=== PATIENT | male | born 1930 | race Caucasian/White ===

== ENCOUNTER 2016-08-29 14:06 | Inpatient (IN) | payer MEDICARE, BC ==
[~2016-08-29] VITALS: Ht 172.7 cm; Wt 87.2 kg
--- NOTE | ~2016-08-29 | ECH ---
Transthoracic Echocardiography Report (TTE) Demographics Patient Name DIONY ANNE Date of Study 08/30/2016 Patient Number [id number] Visit Number [id number] Date of 1930 Room Number 520 Accession Number [id number] Gender Male Age 86 year(s) Referring Christian Gaona Plater Supervisor Mary Schultz Physician SUJATA Physician Andrzej Perez MD Telemarketing Representative Physician Scotty Supervising Ordering Physician Christian Gaona MD/MLP Nurse Stress Cotton Presser Conclusions Contractility Score Summary Normal Left Ventricular contractility was noted. Summary Technically adequate exam. The estimated left ventricular ejection fraction is 60%. Mild biatrial enlargement. There is trivial aortic regurgitation by color Doppler. Recommendation The patient will be given the results of this study by the physician who ordered the exam. Procedure Type of Study TTE procedure:Echo Complete SF. Procedure Date Date: 08/30/2016 Start: 03:04 PM Technical Quality: Adequate visualization Indications:Atrial fibrillation, Bradycardia and Diabetes. Appropriate Use Criteria: 9 Height: 68 inches Weight: 152 pounds BSA: 1.82 m Rhythm: Atrial fibrillation HR: 68 bpm BP: 141/82 mmHg M-Mode/2D Measurements LV Diastolic Dimension: 5.09 cm LV Systolic Dimension: 3.58 cm LV Septum Diastolic: 0.88 cm LV PW Diastolic: 0.83 cm AO Root Dimension: 3.13 cm Cardiac Output: 4.79 l/min LA Dimension: 4.33 cm Cardiac Index: 2.63 l/min*m RV Diastolic Dimension: 3.63 cm LA volume index: 41 ml/m LVOT: 2.24 cm LVOT VTI: 17.89 cm RV Base: 3.5 cm LV Stroke volume: 70.47 ml RV Mid: 2.4 cm LV Stroke volume index: 38.72 ml/m TAPSE: 2.3 cm TDI-S': 11 cm/s Doppler Measurements AV Peak Velocity: 1.4 m/s MV Peak E-Wave: 0.92 m/s AV Peak Gradient: 7.84 mmHg AV Mean Gradient: 4.07 mmHg MV P1/2t: 76 msec LVOT Peak Velocity: 0.9 m/s AV Area (Continuity):2.89 cm AV P1/2t: 450.6 msec MV Area (PHT): 2.89 cm TR Velocity:2.37 m/s PV Peak Velocity: 0.72 m/s TR Gradient:22.47 mmHg PV Peak Gradient: 2.04 mmHg Estimated RAP:3 mmHg Estimated PASP: 25.47 mmHg Estimated RVSP: 25 mmHg E' Septal Velocity: 0.09 m/s E' Lateral Velocity: 0.12 m/s RA Area: 18.32 cm Findings Left Ventricle Normal left ventricle size and function. Diastolic function indeterminate due to patient's arrhythmia. Right Ventricle Normal right ventricle structure and function. Left Atrium The left atrium is mildly dilated by LA volume index measurement. Right Atrium The right atrium is mildly dilated. Mitral Valve Mild mitral annular calcification. Trivial mitral regurgitation by color Doppler. Aortic Valve The aortic valve is mildly sclerotic. There is trivial aortic regurgitation by color Doppler. Tricuspid Valve Normal tricuspid valve structure and function. Mild tricuspid regurgitation by color Doppler. Normal pulmonary pressures. Pulmonic Valve The pulmonic valve is not well visualized. Pericardial Effusion No evidence of pericardial effusion. Miscellaneous Visualized portions of the aortic root and ascending aorta appear normal in size. Pleural Effusion No evidence of pleural effusion. Contractility Score LV regional wall motion:(0-Non visualized 1-Normal 2-Hypokinesis 3-Akinesis 4-Dyskinesis 5-Aneurysm) Signature
[~2016-08-29 14:06] MED LIST: ASA CHILDREN'S81 MG PO; DUONEB DPS3 ML IH; ELIQUIS2.5 MG PO; GLUCOTROL5 MG PO; LEXAPRO DPS10 MG PO; MICRO-K DPS10 MEQ PO; NORCO 5-325 TA1 EACH PO; PRESERVISION A1 EAC2 PO; PRILOSEC DPS20 MG PO; RESTASIS1 EACH OU; SENOKOT S1 TAB PO; SEROQUEL25 MG PO; SYNTHROID DPS0.15 MG PO; TEARS NATURAL D15 ML OU; TERAZOSIN10 MG PO; TYLENOL DPS325 MG PO
--- NOTE | 2016-08-31 17:03 | CO ---
ADMIT: 08/29/2016 RM/LOC: 520 [facility] MR#: [id number] 2620 [facility] [address] [place], [place] [address] REJI ANNE [address] [place] [address] Consultation SEX: M AGE: 86 : 1930 DATE OF CONSULTATION: 08/31/2016 ATTENDING PHYSICIAN: Jimenez Gonzales CONSULTING PHYSICIAN: Scotty Perez MD REASON FOR CONSULTATION: Atrial fibrillation, and slow ventricular response intermittently. HISTORY OF PRESENT ILLNESS: Reji is a pleasant 86-year-old male, who I was asked to see in consultation by Dr. Gonzales regarding atrial fibrillation and intermittent slow ventricular response while sleeping. Reji has a long history of atrial fibrillation, but family and he is not sure for how long he has been on anticoagulation. He just recently moved to [facility], and had not even been there two weeks when he was brought in for weakness and confusion. He does have a history of orthostasis. He says, he was having difficulty time walking and moving his arms and legs. He declined to the point that he could not get out of bed. He was diagnosed with urinary tract infection, and was admitted to the hospital for further evaluation. There was concern about underlying Parkinson's disease and he also has some orthostasis overnight. He has permanent atrial fibrillation but had some heart rates down to about 40 beats per minute. He did wear a Holter monitor a year ago that was unremarkable with atrial fibrillation with an average heart rate in the 70s. PAST MEDICAL HISTORY: Includes: 1. Permanent atrial fibrillation. 2. BPH. 3. Dementia. 4. Diabetes. 5. Edema. 6. Reflux. 7. History of orthostatic hypotension. 8. History of hypothyroidism. 9. History of depression. 10.Nephrolithiasis. 11.Obesity. 12.Sleep-related hypoxia. 13.Osteoarthritis. 14.Polyps. 15.Venous insufficiency. MEDICATIONS: Home medications include: 1. Aspirin daily. 2. Cranberry daily. 3. Calcium D daily. 4. Eliquis 5 mg b.i.d. 5. Escitalopram 10 mg at bedtime. 6. Furosemide 40 mg daily. ADMIT: 08/29/2016 RM/LOC: 520 [facility] MR#: [id number] [address] [address] [address] Consultation SEX: M AGE: 86 : 1930 7. Levothyroxine 150 mcg daily. 8. Melatonin 3 mg at bedtime. 9. Midodrine 2.5 mg b.i.d. 10.Omeprazole 20 mg b.i.d. 11.Multivitamin daily. 12.Potassium 10 mEq daily. 13.PreserVision daily. 14.Refresh eye drops daily. 15.Restasis drops b.i.d. 16.Senexon two capsules b.i.d. 17.Surfak 240 mg daily. 18.Benazepril 5 mg at bedtime. 19.Mirtazapine 15 mg at bedtime. ALLERGIES: SEROQUEL CAUSE CONFUSION. FAMILY HISTORY: Denies any family history of early coronary artery disease. SOCIAL HISTORY: Patient is . He recently moved to [facility]. Denies any alcohol, drug, or tobacco use. REVIEW OF SYSTEMS: Unable to obtain accurate review of systems. He could not really provide any history at this point. Some of it is obtained from his daughters, but a review of systems could not be accurately obtained. PHYSICAL EXAMINATION: VITAL SIGNS: Blood pressure 125/70, pulse 66, respirations 16, oxygen 96% on room air. GENERAL: He is alert. He is oriented to self and place. He is in no acute distress. He is lying in bed. HEENT: Normocephalic and atraumatic. Moist mucous membranes. NECK: Supple. No lymphadenopathy. JVP appears normal. HEART: Irregularly irregular. LUNGS: Clear to auscultation bilaterally. ABDOMEN: Soft, nontender. EXTREMITIES: He has trace edema bilaterally. NEUROLOGIC: He is able to move all extremities, but appears very weak. SKIN: No rashes. PSYCHIATRIC: He is confused. He cannot answer most questions. DIAGNOSTIC DATA: Reviewed. EKG shows atrial fibrillation with heart rate of 61 beats per minute. TSH is pending. Creatinine is 1.1. Potassium 3.7, sodium 147. CBC; hemoglobin 12.6, hematocrit 37.6, platelets 151, white blood cell count 7.9. IMPRESSION AND PLAN: ADMIT: 08/29/2016 RM/LOC: 520 [facility] MR#: [id number] [address] [place], [place] [id number] [place] [address] Consultation SEX: M AGE: 86 : 1930 1. Permanent atrial fibrillation. The patient did have some mild bradycardia while sleeping overnight around 40 beats per minute, but no significant pauses. This appeared to be mostly while he is sleeping. He does have a history of nocturnal hypoxemia which could be contributing to some nighttime bradycardia, this is not appear to be a major contributor to his current symptomatology. We would watch him on telemetry while he is here. We will check an echocardiogram, check his thyroid studies. Depending upon his tele results while here, we will decide upon a Holter monitor. 2. Urinary tract infection being treated. 3. Dementia encephalopathy. We will follow along and amend our plan as his care progresses. Scotty Perez MD/ [facility] JOB #: [id number] CC: Jimenez Gonzales, Attending Physician Jimenez Gonzales, Family Physician
--- NOTE | 2016-09-02 19:48 | HP ---
ADMIT: 08/29/2016 RM/LOC: 520 [facility] MR#: [id number] 2620 [facility] [address] [place], [place] [address] REJI ANNE [address] [place] [address] History and Physical SEX: M AGE: 86 : 1930 DATE OF SERVICE: CHIEF COMPLAINT: Weakness and confusion. HISTORY OF PRESENT ILLNESS: Reji is a very pleasant 86-year-old male, who recently moved to assisted living at [facility], who was brought in by squad to the Emergency Department for the above complaints. The patient has done actually quite well until the last month. He has lived with his daughter, Charline, at her home. However, over the last month, he has been having rapidly progressive increasing weakness. He has been seen in the clinic multiple times, felt that some of his symptoms were due to orthostasis likely from his terazosin. He was taking two capsules at night. It was noted that he was orthostatic in clinic and blood pressures on the lower end. He has since popped this medicine and this has helped some, but he has continued to feel weak. He states that he has times where he feels like he is frozen and cannot move. As he was becoming more difficult to take care of, he and his daughter agreed for him to live at [facility]. Over the course of the last week, he is severely declined to the point where he cannot even get out of bed. He was evaluated with a urinalysis which showed some abnormalities, not obvious infected, and cultures are currently pending. It was thought that he might have a urinary tract infection and he was actually started on cefdinir. Again, prior to all this, the patient was doing quite well. He used to walk across the street, play cards on a regular basis, and now he has rapidly progressed to a point where he cannot even get up out of the chair. No fevers or chills. No other significant symptoms voiced or complaints voiced at this time. PAST MEDICAL HISTORY: Includes: 1. Atrial fibrillation. 2. Benign prostatic hypertrophy. 3. Mild dementia. 4. Diabetes mellitus. 5. Edema. 6. Esophageal reflux. 7. Hypotension, orthostatic. 8. Hypothyroidism. 9. Major depression, mild. 10.Nephrolithiasis, history of. 11.Obesity. 12.Organic sleep-related hypoxia. 13.Osteoarthritis. 14.Personal history of colon polyps. 15.Venous insufficiency. MEDICATIONS: Please refer to the hospital record. The patient recently was just started on Aricept in the last 48 hours as well as mirtazapine, and I believe he got his first dose last night due to depression and having a flat affect. ADMIT: 08/29/2016 RM/LOC: 520 [facility] MR#: [id number] [address] [place] [id number] [place] [address] History and Physical SEX: M AGE: 86 : 1930 ALLERGIES: SEROQUEL CAUSED INCREASED CONFUSION. DURING HIS LAST HOSPITALIZATION FOR HIS KNEE REPLACEMENT, HE DID HAVE ACUTE ENCEPHALOPATHY/DELIRIUM WITH THIS. FAMILY HISTORY: Noncontributory. SOCIAL HISTORY: The patient recently moved to [facility] as above. No alcohol, drug, or tobacco use. REVIEW OF SYSTEMS: A 10-point review of systems obtained, per HPI, otherwise negative. PHYSICAL EXAMINATION: VITAL SIGNS: Blood pressure, heart rate within normal limits, afebrile. GENERAL: He is alert. Oriented x2 to self and place. In no acute distress. The patient is lying in his bed. Very flat affect. HEENT: Pupils equal, round, and reactive. Extraocular muscles intact. Throat clear. Trachea midline. HEART: Irregular. LUNGS: Clear. ABDOMEN: Soft, nontender. EXTREMITIES: Legs, trace edema. NEUROLOGICAL: Some generalized weakness but no focal neurologic findings. SKIN: Without any significant rashes. LABORATORY DATA: CBC essentially normal. Potassium slightly low at 3.3. AST and ALT slightly elevated, 53 and 80. ASSESSMENT: This is an 86-year-old with: 1. Acute encephalopathy, unclear etiology. 2. Rapidly progressive weakness. 3. Urinary tract infection. 4. Underlying dementia. 5. History of orthostasis, recently taken off terazosin. 6. Question of Parkinson disease. 7. Generalized debility of age. 8. Atrial fibrillation, chronic anticoagulation. 9. Gastroesophageal reflux disease. 10.Benign prostatic hypertrophy. 11.Orthostasis. PLAN: We will admit patient OPO. Encephalopathy possibly secondary to infection. I did talk with Nikolai and he is not appropriate given his current care needs for assisted living. No arrangements have been made for ADMIT: 08/29/2016 RM/LOC: 520 [facility] MR#: [id number] [address] [place] [id number] [place] [address] History and Physical SEX: M AGE: 86 : 1930 long-term [facility]. However, this is not the patient's baseline. Prior to this, he was doing quite well at home living with his daughter and just really has rapidly progressed over the last month and then more severely over the last week. I do have concern that there may be some underlying neurologic disorder, possible Parkinson's versus neuromuscular disorder. We will ask Neurology to see patient. We will treat with antibiotics. Physical therapy and have speech therapy. Rule out any stroke with CT scan. Continue to monitor closely. I do think patient does have some underlying mild dementia and thus this is definitely unmasked during his last hospitalization with his knee replacement, but since then, he has been doing quite well and his many mini-mental status exams in the clinic have been quite good. Appreciate Neurology's evaluation in advance. Jimenez Gonzales MD/ [facility] JOB #: [id number] CC: Jimenez Gonzales, Attending Physician Jimenez Gonzales, Family Physician
--- NOTE | 2016-09-03 23:43 | ER ---
ADMIT: 08/29/2016 RM/LOC: 520 [facility] MR#: [id number] [address] [facility] [address] [place], [place] [address] [facility] [address] [address] Emergency Room Report SEX: M AGE: 86 : 1930 DATE: 08/29/2016 HISTORY OF PRESENT ILLNESS: He lives at [facility], brought in today with confusion and weakness that continues in the emergency room. He was diagnosed yesterday by Dr. Gonzales as having a urinary tract infection after he had a urinalysis done. He was started on cefdinir yesterday, but he reports getting his one dose today. He also reports getting a new antidepressant which was started this week. The patient seems to be a little confused. REVIEW OF SYSTEMS: Otherwise negative. PAST MEDICAL HISTORY: He has had gastritis, atrial fibrillation, hypotension which is chronic, and macular degeneration.. MEDICATIONS: See T-sheet, which are quite extensive and include: 1. Aspirin. 2. Calcium. 3. Eliquis. 4. Citalopram. 5. Furosemide. 6. Levothyroxine. 7. Melatonin. 8. Midodrine. 9. Omeprazole. 10.Potassium chloride. 11.Senexon. 12.Terazosin. 13.Xarelto. 14.Donepezil. 15.Mirtazapine. 16.Cefdinir. ALLERGIES: NO KNOWN DRUG ALLERGIES EXCEPT FLEXERIL MAKES HIM A LITTLE CONFUSED. SOCIAL HISTORY: Denies drinking drugs or alcohol. PHYSICAL EXAMINATION: VITAL SIGNS: Blood pressure 97/66, heart rate 76, respirations 16, temp is 97.6, O2 sats 96%. GENERAL: Mildly anxious. NEUROLOGIC: Alert, flat affect, depressed. NECK: Supple. HEENT: PERRLA. RESPIRATIONS: No distress. CVS: Regular in rate and rhythm. ABDOMEN: Nontender. SKIN: Good color and turgor. Warm and dry. EXTREMITIES: Mild edema bilaterally. ADMIT: 08/29/2016 RM/LOC: 520 [facility] MR#: [id number] [address] [address] [place] [address] Emergency Room Report SEX: M AGE: 86 : 1930 LABORATORY DATA: We added to the UA that was done yesterday which had blood 1+, ketones 2+, leukocytes 1+ with a culture and sensitivity to follow. Today, the white count 7.4, hemoglobin 13.2, hematocrit is 38.7. Chemistry; potassium is 3.3 with a glucose of 155, calcium is 84, AST 53, ALT 80, GFR 15. EMERGENCY DEPARTMENT COURSE: Daughter showed up and requested that he get admitted to the hospital to sort out his medications as he has weakness that [facility] is not able to deal with or help with his care. Daughter is not taking him back home. So, I contacted Dr. Jimenez Gonzales. Orders were given. He will be admitted to 4th floor telemetry. He does not meet the criteria for sepsis per nurse evaluation, Clark Gaviria, but Dr. Gonzales asked us to add a procalcitonin and a lactic acid. At this point, he is afebrile. He is hypotensive because this is a chronic issue with him. His white count is 7.4. He is not tachycardic. He is not dyspneic. CLINICAL IMPRESSION: Urinary tract infection and weakness. Admission orders will follow after Dr. Gonzales contacts the floor for orders. GINNY Salazar / Anthony Pretty MD / [facility] JOB #: [id number] CC: Jimenez Gonzales MD, Attending Physician Jimenez Gonzales MD, Family Physician
--- NOTE | 2016-09-05 14:18 | CO ---
ADMIT: 08/29/2016 RM/LOC: 520 [facility] MR#: [id number] [address] [facility] [address] [place], [place] [address] DIONY ANNE [address] [place] [address] Consultation SEX: M AGE: 86 : 1930 DATE OF CONSULTATION: 08/30/2016 ATTENDING PHYSICIAN: Jimenez Gonzales CONSULTING PHYSICIAN: Bev Morales APRN TIME-IN: 1045 hours. TIME-OUT: 1115 hours. REASON FOR CONSULTATION: Supportive care consultation was requested by Dr. Gonzales for discussion of goals for care and patient support. HISTORY OF PRESENT ILLNESS: Mr. Anne is a delightful 86-year-old male with a relatively uncomplicated past medical history including atrial fibrillation and macular degeneration. He recently moved to assisted living at [facility] due to increasing need for assistance with ADLs and also a little bit of mild confusion. Just prior to admission, he was seen by Dr. Gonzales and treated for urinary tract infection. Due to ongoing confusion and weakness, he presented to the emergency room on August 29. His daughter requested admission for evaluation of his medications and overall decline. CT of the head was done, which was negative. Ultrasound of the abdomen did reveal cholelithiasis. Apparently, he has had some episodes of "freezing up." Therefore, neurology is consulted to see the patient, however, is unavailable until September 02. There is concern as to whether or not he is demonstrating some parkinsonian-type symptoms. Speech Therapy is following him for swallow issues, and he did pass his MBS today with a modified diet. Due to his complexities, supportive care consultation was requested to discuss goals for care. In terms of symptoms, the patient's affect is fairly flat. He does seem a little depressed and acknowledges that he is anxious at times regarding his overall status and decline. He denies pain or other physical complaints at this time. In terms of advanced directives, the patient is a do not resuscitate/do not intubate status. He does have advanced directive paperwork on file including a living will and also a durable [id number] for healthcare in which he appoints Charline Reynolds, who is his daughter and his phone #[phone] as his healthcare [id number]. Additionally, Jhonathan Anne and Katie Lugo are listed as his successor attorney recruiter in fact for healthcare. PAST MEDICAL HISTORY: Atrial fibrillation, gastritis, hypotension, anxiety, depression, and macular degeneration. ALLERGIES: HE HAS NO KNOWN MEDICATION ALLERGIES. CURRENT MEDICATIONS: Please see the patient's MAR for specific routes and dosages. His current medications are as follows: ADMIT: 08/29/2016 RM/LOC: 520 [facility] MR#: [id number] [address] [place] [address] [address] Consultation SEX: M AGE: 86 : 1930 1. Multivitamin. 2. Aricept. 3. Melatonin. 4. Rocephin. 5. ProAmatine. 6. Surfak. 7. Senokot. 8. Restasis. 9. Natural Tears. 10.Potassium chloride. 11.Protonix. 12.Synthroid. 13.Caltrate with D. 14.Aspirin. 15.Lasix. 16.Lexapro. 17.Zyprexa. 18.Maalox. 19.Tylenol. 20.Colace. 21.Nitrostat. 22.Eliquis. SOCIAL HISTORY: The patient is . He most recently has been living at [facility]. He does not use alcohol or tobacco. He is a retired vigil. FAMILY HISTORY: Reviewed and noncontributory. FUNCTIONAL REVIEW: Prior to his hospital stay, he states that he was able to ambulate at [facility]. He was needing occasional assistance with ADLs. There was some mild confusion. His palliative performance scale prior to admission was at 60%. Currently, he mainly sits or lies. He is requiring assistance with ADLs and transfers. He is mildly confused at times during the course of our conversation. His current palliative performance scale status is at 50%. REVIEW OF SYSTEMS: A 10-point review of systems was completed and other than those pertinent positives and negatives mentioned in the HPI is negative. PHYSICAL EXAMINATION: GENERAL: The patient is examined in the chair. He is in no acute distress. VITAL SIGNS: Temperature 97.0, pulse 63, respirations 18, blood pressure 141/82, oxygen 95% on room air. HEENT. Head is normocephalic. Pupils are 3 mm and brisk. Oral mucosa pink and moist with fair dentition. NECK: Supple. RESPIRATORY: Respirations are equal, nonlabored at rest. LUNGS: Diminished in the bases. ADMIT: 08/29/2016 RM/LOC: 520 [facility] MR#: [id number] [address] [address] [place] [address] Consultation SEX: M AGE: 86 : 1930 CARDIOVASCULAR: Rate rhythm regular without murmurs, rubs, or gallops. 1+ bilateral lower extremity edema noted. GASTROINTESTINAL: Soft, nontender. Bowel sounds are positive. MUSCULOSKELETAL: Generalized weakness. No obvious joint deformities. INTEGUMENTARY: Skin turgor is fair. His skin is fragile. NEUROLOGIC: Alert and oriented x3. He will intermittently become a little confused regarding details such as the year his . PSYCHIATRIC: Calm with a fairly flat affect. He does acknowledge feeling anxious at times and seems to be a little depressed regarding his overall condition. IMPRESSION: 1. Debility. 2. Fatigue. 3. Malaise. 4. Mild protein-calorie malnutrition. 5. Mild confusion. 6. Depression. 7. Anxiety. 8. Urinary tract infection. 9. Atrial fibrillation. 10.Palliative care. 11.The patient is a DNR/DNI. PLAN: 1. I was able to meet with the patient at the bedside. I introduced myself and what my role is in the time ahead. At this time, he is still in the process of being evaluated and Neurology consult is pending. We briefly reviewed his status and overall goals for the time ahead. He is concerned about his decline and has anxiety regarding what could be going on with him. Much support was given to him. At this point, we will ADMIT: 08/29/2016 RM/LOC: 520 [facility] MR#: [id number] [address] [place] [address] [address] Consultation SEX: M AGE: 86 : 1930 follow up over the holiday weekend once complete evaluation is done to discuss goals further with the patient. His daughter was not present at the bedside during my discussion. However, she does come to the hospital stay. I will try to get back up and introduce myself to her as well. 2. I did review code status with the patient. He confirms do not resuscitate/do not intubate status. 3. He has advanced directives on file and these are verified with the patient. We would like to thank Dr. Gonzales for the invitation to participate in this patient's care. Total consultation time was 30 minutes from 1045 hours to 1115 hours with 17 minutes from [id number] spent [id number] with the patient discussing goals for care and providing counseling and support. Bev Morales APRN/ [facility] JOB #: [id number] CC: Jimenez Gonzales, Attending Physician Jimenez Gonzales, Family Physician
--- NOTE | 2016-09-12 15:58 | CO ---
ADMIT: 08/29/2016 RM/LOC: 520 [facility] MR#: [id number] 2620 [facility] [address] [place] [id number] [place], [id number] [place] [address] Consultation SEX: M AGE: 86 : 1930 DATE OF CONSULTATION: 09/03/2016 ATTENDING PHYSICIAN: Jimenez Gonzales CONSULTING PHYSICIAN: Refugio Jackson MD REASON FOR CONSULTATION: Falls and weakness. HISTORY OF PRESENT ILLNESS: The patient is a pleasant 86-year-old gentleman who was admitted to [facility] for fairly rapid decline in his functioning. He has difficulty with walking and reportedly was evaluated for Parkinson's in the past for which the result was inconclusive. The patient currently lives in assisted living [facility] but worsened to the point that he had to be admitted. The difficulties with gait are for about a year long, but in the last few weeks, he rapidly declined. He has hard times standing up from chair, reportedly shuffles and stops in a door frame. There appears to be also worsening with memory. Mood seems to be intact, short-term seems to be impaired. However, he is able to remember events with cues as per his family. PAST MEDICAL HISTORY: Significant for atrial fibrillation, BPH, some cognitive decline, diabetes, GERD, hypotension orthostatic, hypothyroidism, depression, nephrolithiasis, HARRIETT, obesity, OA, colon polyps, and venous insufficiency. MEDICATIONS: Reviewed in electronic medical record. Outpatient medications include: 1. Aspirin. 2. Calcium. 3. Cranberry. 4. Eliquis 5 mg twice daily. 5. Lexapro 10 mg. 6. Furosemide. 7. Levothyroxine. 8. Melatonin. 9. Midodrine 2.5 twice daily. 10.Omeprazole. 11.Multivitamins. 12.Potassium. 13.PreserVision. 14.Refresh tears. 15.Restasis. 16.Senexon. 17.Surfak. 18.Donepezil. 19.Mirtazapine. 20.Cefdinir. ALLERGIES: SEROQUEL. ADMIT: 08/29/2016 RM/LOC: 520 [facility] MR#: [id number] [address] [address] [place] [address] Consultation SEX: M AGE: 86 : 1930 FAMILY HISTORY: Noncontributory to current presentation. No Parkinson disease in the family reported. SOCIAL HISTORY: No alcohol or smoking. REVIEW OF SYSTEMS: All systems reviewed, negative except as per HPI. Positive pertinent findings are neurological difficulties with gait, falls, memory issues. CARDIOVASCULAR: Orthostatic hypotension. PHYSICAL EXAMINATION: VITAL SIGNS: Temperature 98.2, heart rate 59, respirations 16, blood pressure 145/61, saturation 94% on room air. The patient appears to be in no acute discomfort. HEAD: Normocephalic. NECK: Moveable. CHEST: Normal respiratory rises. CARDIOVASCULAR: Bradycardic. ABDOMEN: Nondistended. EXTREMITIES: No clubbing or cyanosis. NEUROLOGICAL EXAM: The patient is awake, alert. His speech is monotone, language is intact. Deferred testing of fund of knowledge. Orientation, he appears to be fairly oriented to situation. Cranial nerves, visual patterson are intact. Pupils are equal and reactive. Extraocular muscles intact. Facial sensation is normal. Face is symmetric. Hearing to voice mildly reduced. Uvula did visualize. Shoulder shrug normal. Tongue moveable. Motor examination reveals full strength throughout, but he is bradykinetic. He has rigidity, which is worse on the left side. Fine motor movements are with reducing frequency and amplitude worse on the left side as demonstrated by opening, closing the fist, finger tapping, and foot tapping. Sensory, nonlateralizing to touch. Reflexes deferred. Coordination fairly intact. Gait, he was able to stand up from chair with 3 or 4 swings. Initial steps were shuffling, stooped posture, reduced arm swing. Turning, he uses multiple steps. LABORATORY DATA: Reviewed in electronic medical record, fairly unremarkable. IMAGING: CT of the head reveals generalized atrophy and pronounced white matter changes. There is a question of hypodensity in the right frontal lobe that extends to the cortex, age unknown. ASSESSMENT: 1. Parkinson disease. 2. Cognitive decline, likely related to Parkinson's disease. 3. deconditioning likely due to recent infection. Received antibiotics for UTI. 4. Orthostatic hypotension. ADMIT: 08/29/2016 RM/LOC: 520 [facility] MR#: [id number] [address] [place] [id number] [place] [address] Consultation SEX: M AGE: 86 : 1930 PLAN: 1. We will start Sinemet 25/100 mg t.i.d. a.c. (to prevent poor absorption with protein containing meals). If nauseated can give juice and crackers. 2. He will continue with physical therapy. 3. CT of the head showed hypodensity. Therefore, we will obtain the MRI. 4. We will see how he does with the Sinemet. Potentially, we will need to adjust his midodrine. It is better used as t.i.d. Last dose should be from bedtime at least for 4 hours to prevent supine hypertension. Thank you very much for this interesting consultation. We will continue to follow along. Refugio Jackson MD/ [facility] JOB #: [id number] CC: Jimenez Gonzales, Attending Physician Jimenez Gonzales, Family Physician
[2016-09-19] MEDS ORDERED: THERA1 EACH PO (18:33)
[2016-09-19] MEDS ORDERED: ARICEPT DPS5 MG PO (18:34)
[2016-09-19] MEDS ORDERED: PRESERVISION A1 EAC1 PO (18:34)
[2016-09-19] MEDS ORDERED: LEXAPRO DPS10 MG PO (18:34)
[2016-09-19] MEDS ORDERED: ASA CHILDREN'S81 MG PO (18:34)
[2016-09-19] MEDS ORDERED: RESTASIS1 EACH OU (18:35)
[2016-09-19] MEDS ORDERED: XARELTO10 MG PO (18:35)
[2016-09-19] MEDS ORDERED: TEARS NATURAL D15 ML OU (18:35)
[2016-09-19] MEDS ORDERED: SENOKOT S1 TAB PO ×2 (18:35→18:38)
[2016-09-19] MEDS ORDERED: SINEMET 25/1001 TAB PO (18:36)
[2016-09-19] MEDS ORDERED: VITAMIN D31000 UNIT PO (18:36)
[2016-09-19] MEDS ORDERED: PEPCID DPS20 MG PO (18:36)
[2016-09-19] MEDS ORDERED: LASIX DPS40 MG PO (18:37)
[2016-09-19] MEDS ORDERED: MIDODRINE HCL2.5 MG PO (18:37)
[2016-09-19] MEDS ORDERED: KLOR-CON M2020 ME1 PO (18:37)
[2016-09-19] MEDS ORDERED: MELATIN3 MG PO (18:37)
[2016-09-19] MEDS ORDERED: SURFAK DPS240 MG PO (18:38)
--- NOTE | 2016-10-22 07:59 | DS ---
ADMIT: 09/04/2016 RM/LOC: 520 [facility] MR#: [id number] [address] [address] [place], [address] [address] General Discharge Summary SEX: M AGE: 86 : 1930 ADMISSION DATE: 09/04/2016 DISCHARGE DATE: 09/04/2016 FINAL DIAGNOSES: 1. Acute encephalopathy, secondary to urinary tract infection. 2. Rapidly progressive weakness. 3. Newly diagnosed Parkinson disease. 4. Urinary tract infection. 5. Underlying dementia, mild. 6. History of orthostasis. 7. Generalized debility of age. 8. Atrial fibrillation, chronic anticoagulation. 9. Gastroesophageal reflux. 10.Benign prostatic hypertrophy. 11.Mild protein-calorie malnutrition. 12.Generalized malaise. 13.Depression. 14.Anxiety. CONSULTATIONS: 1. Supportive Care team with Bev Morales APRN. 2. Cardiology, Scotyt Perez MD. 3. Neurology with Refugio Jackson MD. REASON FOR ADMISSION: Please refer to dictated H and P. Briefly, the patient is a very pleasant 86-year-old male, was previously living at home and then recently transferred to assisted living at [facility], started experiencing significant weakness, confusion over the last week. Seemed to be progressing. Unable to get him out of bed and not making sense. This is very abnormal for [place] as he was previously doing quite well. He was evaluated in the Emergency Department for the above complaints, and we were asked to admit for his encephalopathy. HOSPITAL COURSE: The patient admitted with routine telemetry. Noted to have a urine that appeared to be consistent with urinary tract infection. Started on antibiotics. Cultures showed multiorganism, nothing specific. He did seem to improve with the antibiotics. Over the next few days, the patient gradually improved with his weakness and mental state as well. Encephalopathy improved. We did have Dr. Jackson see him and agreed that he probably has some underlying Parkinson disease. The patient was started on Sinemet. The patient did undergo multiple imaging of the head including CT and MRI, which ADMIT: 09/04/2016 RM/LOC: 520 [facility] MR#: [id number] [address] [address] [place] [address] General Discharge Summary SEX: M AGE: 86 : 1930 were negative. There were no other major events during hospitalization. The patient still was not doing well mobility barillas and strength barillas and therefore he was transferred to the IRU for further rehabilitation there. No other major events during hospitalization. DISCHARGE MEDICATIONS: Please refer to hospital record. DISCHARGE INSTRUCTIONS: The patient was instructed to take all medications as prescribed. Follow up with Dr. Gonzales shortly after his discharge from IRU. Hopefully, we will be able to get him back to [facility]. Discharge activities took approximately 35 minutes. Jimenez Gonzales MD/ [facility] JOB #: [id number] CC: Jimenez Gonzales MD, Attending Physician Jimenez Gonzales MD, Family Physician
== END 2016-09-04 15:22 | disposition short-term general hospital (02) | DRG 689 ==
LOC: ER 14:06 → 5MS 16:15
PROVIDERS: ADMIT Family Medicine
DX: N39.0 Urinary tract infection, site not specified (principal); G93.40 Encephalopathy, unspecified; G47.34 Idiopathic sleep related nonobstructive alveolar hypoventilation; F03.90 Unspecified dementia, unspecified severity, without behavioral disturbance, psychotic disturbance, mood disturbance, and anxiety; E44.1 Mild protein-calorie malnutrition; F32.9 Major depressive disorder, single episode, unspecified; H35.30 Unspecified macular degeneration; G20 Parkinson's disease; N40.0 Benign prostatic hyperplasia without lower urinary tract symptoms; F41.9 Anxiety disorder, unspecified; R54 Age-related physical debility; I48.2 Chronic atrial fibrillation; K21.9 Gastro-esophageal reflux disease without esophagitis; I95.1 Orthostatic hypotension; E03.9 Hypothyroidism, unspecified; E66.9 Obesity, unspecified; I87.2 Venous insufficiency (chronic) (peripheral); E11.9 Type 2 diabetes mellitus without complications; Z79.82 Long term (current) use of aspirin; Z79.01 Long term (current) use of anticoagulants; Z66 Do not resuscitate

== ENCOUNTER 2016-09-04 15:35 | Inpatient (IN) | payer MEDICARE, BC ==
[~2016-09-04] VITALS: Ht 172.7 cm; Wt 89.5 kg
[2016-09-19] MEDS ORDERED: THERA1 EACH PO (18:33)
[2016-09-19] MEDS ORDERED: LEXAPRO DPS10 MG PO (18:34)
[2016-09-19] MEDS ORDERED: PRESERVISION A1 EAC1 PO (18:34)
[2016-09-19] MEDS ORDERED: ARICEPT DPS5 MG PO (18:34)
[2016-09-19] MEDS ORDERED: ASA CHILDREN'S81 MG PO (18:34)
[2016-09-19] MEDS ORDERED: RESTASIS1 EACH OU (18:35)
[2016-09-19] MEDS ORDERED: TEARS NATURAL D15 ML OU (18:35)
[2016-09-19] MEDS ORDERED: XARELTO10 MG PO (18:35)
[2016-09-19] MEDS ORDERED: SENOKOT S1 TAB PO ×2 (18:35→18:38)
[2016-09-19] MEDS ORDERED: VITAMIN D31000 UNIT PO (18:36)
[2016-09-19] MEDS ORDERED: PEPCID DPS20 MG PO (18:36)
[2016-09-19] MEDS ORDERED: SINEMET 25/1001 TAB PO (18:36)
[2016-09-19] MEDS ORDERED: KLOR-CON M2020 ME1 PO (18:37)
[2016-09-19] MEDS ORDERED: MIDODRINE HCL2.5 MG PO (18:37)
[2016-09-19] MEDS ORDERED: MELATIN3 MG PO (18:37)
[2016-09-19] MEDS ORDERED: LASIX DPS40 MG PO (18:37)
[2016-09-19] MEDS ORDERED: SURFAK DPS240 MG PO (18:38)
--- NOTE | 2016-10-19 18:28 | DS ---
ADMIT: 09/04/2016 RM/LOC: 610 [facility] MR#: [id number] [address] [address] [facility] [address] [place] [address] General Discharge Summary SEX: M AGE: 86 : 1930 ADMISSION DATE: 09/04/2016 DISCHARGE DATE: 09/18/2016 DISCHARGE DIAGNOSES: Neurologic condition 03.2, parkinsonism, G20 Parkinson disease, onset 08/29/2016, comorbid conditions per initial H and P. Other diagnoses per hospital course below. HOSPITAL COURSE: Please see my initial H and P for details prior to transfer to the IRU. Pain and bowel regimen were adjusted. Dietitian followed to optimize nutrition. Pharmacist followed to optimize medication management. Eliquis was continued for prophylaxis. Melatonin for insomnia. Protonix switched to Pepcid for GERD. Surfak switched to Senokot-S for constipation. DNR/DNI decision. Synthroid at times adjusted for hypothyroidism. Lab was monitored regularly. Zyprexa discontinued. Lexapro adjusted for depression. Melatonin decreased for insomnia. Ditropan started for urinary incontinence, nocturia, frequency, urinary urgency, and overactive bladder. Postvoid residuals were monitored while on this medication. Ditropan increased to help with overactive bladder. Melatonin adjusted to p.r.n. for insomnia. Lasix and KCl discontinued. Used EdemaWear with knee highs bilaterally. Pepcid discontinued. Used Maalox p.r.n. GERD. Switched Eliquis to Xarelto for DVT prophylaxis per Dr. Jimenez Gonzales. PVRs were within normal limits. Increased Ditropan XL for that reason to help with overactive bladder. Postvoid residuals continued to be normal. Pepcid restarted for GERD. Suppository after supper for constipation and warm water enema as needed. Vitamin D deficiency replaced with vitamin D. Ditropan XL was not helping and so we switched to Myrbetriq and monitored blood pressure and heart rate 2 times per shift x3 days, then routine. He had a history of hypertension on Myrbetriq. He did develop some hypertension, so Flomax was started 0.4 mg for BPH and overactive bladder. ProAmatine discontinued. Constipation addressed. We tried timed voids for overactive bladder. Kept a voiding diary. Timed voids ADMIT: 09/04/2016 RM/LOC: 610 [facility] MR#: [id number] [address] [address] [place] [address] General Discharge Summary SEX: M AGE: 86 : 1930 overnight. Tried condom catheter and worked very well. We discontinued the timed voids, Flomax, and Myrbetriq after no help. UA with micro, no culture to rule out UTI, it was within normal limits, no UTI. Discontinued melatonin. Adjusted Senokot-S for constipation. The patient was medically stable at the time of discharge. Please see IRU interdisciplinary discharge summary for details regarding progress in therapy. DISCHARGE DISPOSITION: [facility]. DISCHARGE MEDICATIONS: Please see discharge med rec. FOLLOWUP: Dr. Gonzales on September 27, home healthcare RN, PT, OT, and ST. Jimbo Marcelo MD/ [facility] JOB #: [id number] CC:
== END 2016-09-18 15:20 | disposition home or self-care (01) | DRG 57 ==
LOC: 6IRU 15:35
PROVIDERS: ADMIT Physical Medicine & Rehabilitation
PROC: F08Z1FZ Dressing Techniques Treatment using Assistive, Adaptive, Supportive or Protective Equipment (ICD-10-PCS; principal; 2016-09-04)
PROC: F06ZDZZ Swallowing Dysfunction Treatment (ICD-10-PCS; principal; 2016-09-04)
PROC: F07Z9YZ Gait Training/Functional Ambulation Treatment using Other Equipment (ICD-10-PCS; principal; 2016-09-04)
DX: G20 Parkinson's disease (principal); I48.91 Unspecified atrial fibrillation; F03.90 Unspecified dementia, unspecified severity, without behavioral disturbance, psychotic disturbance, mood disturbance, and anxiety; E11.9 Type 2 diabetes mellitus without complications; D64.9 Anemia, unspecified; I10 Essential (primary) hypertension; R13.10 Dysphagia, unspecified; N40.1 Benign prostatic hyperplasia with lower urinary tract symptoms; R39.15 Urgency of urination; N32.81 Overactive bladder; R35.1 Nocturia; R32 Unspecified urinary incontinence; K59.00 Constipation, unspecified; M19.90 Unspecified osteoarthritis, unspecified site; G47.00 Insomnia, unspecified; F32.9 Major depressive disorder, single episode, unspecified; K21.9 Gastro-esophageal reflux disease without esophagitis; M62.81 Muscle weakness (generalized); R03.1 Nonspecific low blood-pressure reading; E03.9 Hypothyroidism, unspecified; R60.9 Edema, unspecified; E55.9 Vitamin D deficiency, unspecified; F41.9 Anxiety disorder, unspecified; Z66 Do not resuscitate; Z79.01 Long term (current) use of anticoagulants; Z86.718 Personal history of other venous thrombosis and embolism